=== PATIENT | female | born 1995 | race Caucasian/White ===

== ENCOUNTER 2018-11-18 10:19 | Emergency (ER) | payer BC, OTHER ==
[2018-11-18 10:40] VITALS: BP 121/62
--- NOTE | 2018-11-18 10:51 | UC ---
Throat Pain/Nasal Rodrigo HPI - HPI Summary HPI Summary: Pt presents with c/o worsening URI like symptoms X 10 days. Pt states that cough is worse when she lies down to sleep, that she is now coughing up bright red blood, vomited 3-4 times last night, fatigue worsening and chest congestion is somewhat relieved by using brothers nebulizer and albuterol medication. - History of Current Complaint Chief Complaint: UCGeneralIllness Stated Complaint: TIGHT CHEST,SINUS, COUGH Time Seen by Provider: 11/18/18 10:26 Hx Obtained From: Patient Hx Last Menstrual Period: HAS AN IUD, DOES NOT HAVE REG PERIODS ?: No Onset/Duration: Gradual Onset, Lasting Days - 10, Still Present, Worse Since - onset Severity: Moderate Pain Intensity: 5 Cough: None - bloody Related History: Seasonal Allergies - Epiglottits Risk Factors Epiglottis Risk Factors: Negative - Allergies/Home Medications Allergies/Adverse Reactions: Allergies Allergy/AdvReac Type Severity Reaction Status Date / Time enviromental Allergy Unknown Unknown Uncoded 11/18/18 10:26 Reaction Details Home Medications: Home Medications Albuterol 2.5MG/3ML (0.083%)* [Ventolin 2.5 MG/3 ML NEB.DAX*] 2.5 mg INH Q4H PRN 11/18/18 [History Confirmed 11/18/18] D-Methorphan/PE/Acetaminophen [Vicks Dayquil Liquid] 1 liq PO PRN 11/18/18 [ History] PMH/Surg Hx/FS Hx/Imm Hx Previously Healthy: Yes - Surgical History Surgical History: Yes Surgery Procedure, Year, and Place: Right second toe procedure. T&A 2008, [facility]. Right hand, Trauma repair, [facility] - Family History Known Family History: Positive: None Negative: Diabetes - Social History Occupation: Employed Full-time Lives: With Family Alcohol Use: Occasionally Substance Use Type: None Smoking Status (MU): Never Smoked Tobacco Have You Smoked in the Last Year: No - Immunization History Most Recent Influenza Vaccination: no Vaccination Up to Date: Yes Review of Systems All Other Systems Reviewed And Are Negative: Yes Constitutional: Positive: Fatigue Skin: Positive: Negative Eyes: Positive: Negative ENT: Positive: Sinus Congestion Respiratory: Positive: Shortness Of Breath - with exertion, Cough Cardiovascular: Positive: Negative Gastrointestinal: Positive: Vomiting Genitourinary: Positive: Negative Motor: Positive: Negative Neurovascular: Positive: Negative Musculoskeletal: Positive: Negative Neurological: Positive: Negative Psychological: Positive: Negative Is Patient Immunocompromised?: No Physical Exam Triage Information Reviewed: Yes Appearance: Ill-Appearing - tearful Vital Signs: Initial Vital Signs Temp 98.2 F 11/18/18 10:29 Pulse 105 11/18/18 10:29 Resp 16 11/18/18 10:29 BP 121/62 11/18/18 10:29 Pulse Ox 100 11/18/18 10:29 Vital Signs Reviewed: Yes Eye Exam: Normal ENT: Positive: Nasal congestion Dental Exam: Normal Neck exam: Normal Respiratory: Positive: Decreased breath sounds Cardiovascular Exam: Normal Musculoskeletal Exam: Normal Neurological Exam: Normal Psychological Exam: Normal Skin Exam: Normal Throat Pain/Nasal Course/Dx - Differential Dx/Diagnosis Differential Diagnosis/HQI/PQRI: URI Provider Diagnosis: Bronchitis, Hemoptysis, unspecified Discharge - Sign-Out/Discharge Documenting (check all that apply): Patient Departure All imaging exams completed and their final reports reviewed: No Studies - Discharge Plan Condition: Stable Disposition: HOME Prescriptions: Albuterol HFA INHALER* [Ventolin HFA Inhaler*] 1 - 2 puff INH Q4H PRN #1 mdi PRN Reason: Sob/Wheezing Azithromycin TAB* [Zithromax TAB (Z-BOOM) 250 mg #6 tabs] 2 tab PO .TODAY, THEN 1 DAILY #1 boom Benzonatate CAP* [Tessalon 100 MG CAP*] 200 mg PO Q8H PRN #30 cap PRN Reason: Cough Cetirizine* [ZyrTEC 10 MG TAB*] 10 mg PO DAILY #10 tab predniSONE TAB* [Deltasone 10 MG TAB*] 30 mg PO DAILY #12 tab Patient Education Materials: Acute Bronchitis (ED), Hemoptysis (ED) Referrals: Nany Matos MD [Primary Care Provider] - If Needed Additional Instructions: Please follow up with your PCP as needed. If symptoms worsen, please seek care at the closest emergency room. - Billing Disposition and Condition Condition: STABLE Disposition: Home
== END 2018-11-18 11:03 | disposition home or self-care (01) ==
LOC: UCCORT 10:19
DX: J40 Bronchitis, not specified as acute or chronic (principal); R04.2 Hemoptysis
CPT/HCPCS: 99212; G0463

== ENCOUNTER 2019-04-05 10:24 | Emergency (ER) | payer BC, OTHER ==
--- OUTSIDE RECORDS SUMMARY | 2019-04-05 10:40 | XMS REPORT | Continuity of Care Document ---
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 [phone] Problems Active Problems Provider Date Hypercoagulability state Nany Matos MD Onset: 11/02/2010 Polycystic ovaries Nany Matos MD Onset: 11/02/2010 Anxiety state Nany Matos MD Onset: 07/20/2015 Allergic rhinitis Nany Matos MD Onset: 07/20/2015 Moderate major depression, single episode Nany Matos MD Onset: 2018 Social History Type Date Description Comments Sex Unknown Tobacco Use Start: Unknown Patient has never smoked Smoking Status Reviewed: 03/08/19 Patient has never smoked Allergies, Adverse Reactions, Alerts Description No Known Drug Allergies Medications Active Medications SIG Qnty Indications Ordering Provider Date Buspirone HCL 1 po bid 60tabs F41.1 Nany Matos MD 03/08/2019 30mg Tablets Escitalopram Oxalate 1 by mouth 90tabs F41.9 Nany Matos MD 02/17/2015 20mg every day Tablets F41.1 Fluticasone Propionate 2 sprays each 16units 381.81 Nany Matos MD nostril daily 50mcg/Act Suspension J30.9 Ibuprofen 3 po q 4-6 hours Nany Matos MD 12/19/2011 200mg Tablets prn Fexofenadine HCL take 1 tablet twice 60Tabs J30.9 Nany Matos MD 05/23 30mg dailyas needed otc Tablets Mirena (52 MG) inserted 2014 Unknown 20mcg/24HR IUD History Medications Buspirone HCL 1 by mouth three 90tabs F41.1 Nany Matos, 02/01/2019 - 10mg times a day 03/08/2019 Tablets Buspirone HCL 1 by mouth three 90tabs F41.1 Nany Matos, 09/14/2018 - 5mg times a day for 02/01/2019 Tablets anxiety Immunizations CPT Code Status Date Vaccine Reaction Lot # [id number] Given 12/28/2018 Tdap (Adacel) Ages 7 And Above Only 50651 Given 12/24/2013 Menactra/Menveo Meningococcal Vaccine 24444 Given 05/26/2011 HPV Vaccine (Gardasil) 3 Dose VIS DATE 11/16/10 Schedule 83134 Given 05/12/2011 Afluria Or Fluvirin Flu Vac VIS DATE 02/08/11 Intramuscular 90315 Given 01/14/2011 HPV Vaccine (Gardasil) 3 Dose Schedule 98726 Given 05/10/2010 Influenza Intranasal Vaccine, Live Virus 94005 Given 05/10/2010 HPV Vaccine (Gardasil) 3 Dose Schedule 43755 Given 05/26/2008 Menactra/Menveo Meningococcal Vaccine 46913 Given 05/26/2008 Varicella (Chicken Pox) Immunization 75098 Given 2008 Tdap (Adacel) Ages 7 And Above Only 58838 Given 03/04/2002 DTaP Immunization 7 Yrs & Younger 73095 Given 03/04/2002 IPV / Poliomyelitis Immunization 37803 Given 03/04/2002 MMR Virus Immunization 06257 Given 06/28/2000 Pneumococcal (Prevnar 7)Child Under Five 62233 Given 09/24/1998 Hib/Hep B Vaccine Combination 01065 Given 09/24/1998 DTaP Immunization 7 Yrs & Younger 13859 Given 06/25/1998 Oral Poliovirus Immunization 80475 Given 06/25/1998 MMR Virus Immunization 83288 Given 03/12/1998 Varicella (Chicken Pox) Immunization 95665 Given 1997 DTaP Immunization 7 Yrs & Younger 00323 Given 1997 Hib HbOC Conjugate 4 Dose Schedule 45203 Given 1997 IPV / Poliomyelitis Immunization 84657 Given 1997 DTaP Immunization 7 Yrs & Younger 89071 Given 1997 Hib HbOC Conjugate 4 Dose Schedule 65601 Given 1997 Hib/Hep B Vaccine Combination 36375 Given 1997 IPV / Poliomyelitis Immunization 04196 Given 1997 DTaP Immunization 7 Yrs & Younger 97050 Given 1997 Hepatitis B Vac Ped/Adolescent 3 Dose Schedule Q2039 Refused 09/14/2018 Flu Vaccine NOS Vital Signs Date Vital Result Comment 03/08/2019 9:15am Weight 247.00 lb Heart Rate 88 /min BP Systolic 124 mmHg BP Diastolic 78 mmHg Respiratory Rate 18 /min Height 67.50 inches 5'7.50" BMI (Body Mass Index) 38.1 kg/m2 02/01/2019 4:18pm Weight 250.00 lb Heart Rate 78 /min BP Systolic 122 mmHg BP Diastolic 70 mmHg Respiratory Rate 18 /min Height 67.50 inches 5'7.50" O2 % BldC Oximetry 98 % Ra BMI (Body Mass Index) 38.6 kg/m2 Results Test Date Facility Test Result H/L Range Note CBC with Auto Diff-fcmg 09/14/2018 [facility] WBC 4.2 K/uL 4.1-11.0 1 RBC 4.83 M/uL 4.00-5.40 Hemoglobin 13.7 gm/dL 12.0-16.0 Hematocrit 40.5 % 36.0-47.0 MCV 83.9 fL 80.0-97.0 MCH 28.3 pg 27.0-32.0 MCHC 33.8 g/dL 32.0-36.0 RDW 14.6 % High 11.5-14.5 PLT Count 248 K/ul 140-400 MPV 8.0 FL 7.1-10.7 Neutrophil 45.3 % 35.0-75.0 Lymphocyte 43.8 % 16.0-52.0 Monocyte 8.6 % 2.0-10.0 Eosinophil 1.6 % 0.0-5.0 Basophil 0.7 % 0.0-4.0 Abs Neutrophils 1.9 K/uL Low 2.1-8.0 Abs Lymphocytes 1.8 K/uL 0.8-5.5 Abs Monocytes 0.4 K/uL 0.1-1.0 Abs Eosinophils 0.1 K/uL 0.0-0.5 Abs Basophils 0.0 K/uL 0.0-0.3 Laboratory test finding 09/14/2018 [facility] TSH 1.13 uIU/mL 0.35-4.94 Comprehensive Met Panel-FCMG 09/14/2018 [facility] Sodium 142 mmol/L 135- 146 2 Potassium 4.3 mmol/L 3.5-5.2 Chloride# 105 mmol/L 97-110 3 Carbon Dioxide 30 mmol/L 24-34 Glucose 93 mg/dL 70-105 BUN 14 mg/dL 6-26 Creatinine 0.7 mg/dL 0.5-1.4 Calcium 9.7 mg/dL 8.5-10.2 Total Protein 6.4 g/dL 6.0-8.0 Albumin 4.4 g/dL 3.6-4.9 Globulin 2.0 g/dL 2.0-3.5 A/G Ratio 2.2 Ratio 1.0-2.2 Total Bilirubin 0.3 mg/dL 0.1-1.3 Alkaline Phosphatase 62 U/L 24-140 Alt 16 U/L 3-42 Ast 17 U/L 8-42 Anion Gap 7 mmol/L 5-15 4 Rebecca Egfr >60 >60 5 Non Rebecca Egfr >60 >60 6 1 today 2 Updated reference range on new analyzer 3 Updated reference range on new analyzer 4 Updated Reference Range 5 Concerning GFR Guidelines for Americans: Normal function or mild renal disease, if clinically at risk: >/= 60 mL/min Moderately decreased: 30-59 Severely decreased: 15-29 Renal failure: <15 6 Concerning GFR Guidelines: Normal function or mild renal disease, if clinically at risk: >/= 60 mL/min Moderately decreased: 30-59 Severely decreased: 15-29 Renal failure: <15 Glomerular Filtration Rate (GFR) is estimated based on the MDRD equation, which assumes a steady state for creatinine as recommended by the National Kidney Disease Education Program in conjunction with the National Institutes of Health and the National Kidney Foundation. Clinical conditions in which it may be necessary to measure GFR by using clearance methods include extremes of age and body size, severe malnutrition or obesity, diseases of skeletal muscle, paraplegia or quadriplegia, vegetarian diet, rapidly changing kidney function, and calculation of the dose of potentially toxic drugs that are excreted by the kidneys. Procedures Date Code Description Status 03/08/2019 94887 Brief Emotional/Behav Assessment W/ Scoring Doc Per Completed Standard Inst 09/14/2018 84345 Brief Emotional/Behav Assessment W/ Scoring Doc Per Completed Standard Inst Medical Devices Description No Information Available Encounters Type Date Location Provider Dx Diagnosis Office Visit 02/01/2019 [facility] Nany Matos MD F41.1 Generalized anxiety 4:15p disorder E66.9 Obesity, unspecified Z13.31 Encounter for screening for depression Z68.38 Body mass index (BMI) 38.0-38.9, adult Office Visit 09/14/2018 9:30a [facility] Nany Matos MD F41.1 Generalized anxiety disorder Z13.31 Encounter for screening for depression 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 E28.2 Polycystic ovarian syndrome J30.9 Allergic rhinitis, unspecified Z68.39 Body mass index (BMI) 39.0-39.9, adult Assessments Date Code Description Provider 03/08/2019 F41.1 Generalized anxiety disorder Nany Matos MD 03/08/2019 F32.1 Major depressive disorder, single episode, Nany Matos MD moderate 03/08/2019 R30.0 Dysuria Nany Matos MD 03/08/2019 Z68.38 Body mass index (BMI) 38.0-38.9, adult Nany Matos MD 03/08/2019 R30.0 Dysuria Schedule, Laboratory 02/01/2019 F41.1 Generalized anxiety disorder Nany Matos MD 02/01/2019 E66.9 Obesity, unspecified Nany Matos MD 02/01/2019 Z13.31 Encounter for screening for depression Nany Matos MD 02/01/2019 Z68.38 Body mass index (BMI) 38.0-38.9, adult Nany Matos MD 09/14/2018 F41.1 Generalized anxiety disorder Nany Matos MD 09/14/2018 F41.1 Generalized anxiety disorder Nany Matos MD 09/14/2018 Z13.31 Encounter for screening for depression Nany Matos MD 09/14/2018 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 Nayn Matos MD 09/14/2018 E28.2 Polycystic ovarian syndrome Nany Matos MD 09/14/2018 J30.9 Allergic rhinitis, unspecified Nany Matos MD 09/14/2018 Z68.39 Body mass index (BMI) 39.0-39.9, adult Nany Matos MD 09/14/2018 F41.1 Generalized anxiety disorder Schedule, Laboratory 09/14/2018 F41.1 Generalized anxiety disorder [facility] Plan of Treatment Future Appointment(s):04/26/2019 1:30 pm - Nany Matos MD at [facility]03/08/2019 - Nany Matos MDF41.1 Generalized anxiety disorderNew Medication:Buspirone HCL 30 mg - 1 po bidComments:I counseled the patient about ways to manage her stress and anxiety. We will increase her buspironeto 30 mg to take it twice a day.Follow up:1-2 month follow up anxiety and depression.F32.1 Major depressive disorder, single episode, moderateComments:The patient has a PHQ9 score of 10. Lexapro may not be working well enough for her. We will consider switching her from Lexapro to venlafaxine during the next office visit. In the meantime, will increase dose of buspirone and recommend that she start counseling. she agrees with this planR30.0 DysuriaNew Labs:Urine Culture, Ordered: Comments:We will send her urine for culture.Z68.38 Body mass index (BMI) 38.0- 38.9, adultComments:The BMI is the ratio between height and weight. goal for a person under age 65 is between 18.5 and 25. You are overweight. Work on healthy lifestyle, with regular exercise (20 min daily will help) and eat a healthy diet. Formal diet plans work best. Functional Status Description No Information Available Mental Status Description No Information Available Referrals Description No Information Available
--- OUTSIDE RECORDS SUMMARY | 2019-04-05 10:40 | XMS REPORT | Continuity of Care Document ---
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 [phone] Problems Active Problems Provider Date Hypercoagulability state Nany Matos MD Onset: 11/02/2010 Polycystic ovaries Nany Matos MD Onset: 11/02/2010 Anxiety state Nany Matos MD Onset: 07/20/2015 Allergic rhinitis Nany Matos MD Onset: 07/20/2015 Moderate major depression, single episode Nnay Matos MD Onset: 2018 Social History Type Date Description Comments Sex Unknown Tobacco Use Start: Unknown Patient has never smoked Smoking Status Reviewed: 03/08/19 Patient has never smoked Allergies, Adverse Reactions, Alerts Description No Known Drug Allergies Medications Active Medications SIG Qnty Indications Ordering Provider Date Penicillin V Potassium 1 tab by mouth 20tabs J02.9 Nany Matos, 2018 two times a day MD 500mg Tablets for ten days Benzonatate 1 by mouth three 21caps R05 Nany Matos, 04/03/2019 100mg times a day as MD Capsules needed for cough Buspirone HCL 1 po bid 60tabs F41.1 Nany Matos, 03/08/2019 30mg MD Tablets Escitalopram Oxalate 1 by mouth every 90tabs F41.9 Nany Matos, 2014 20mg day MD Tablets F41.1 Fluticasone Propionate 2 sprays each 16units 381.81 Nany Matos MD nostril daily 50mcg/Act Suspension J30.9 Ibuprofen 3 po q 4-6 hours Nany Matos MD 12/19/2011 200mg Tablets prn Fexofenadine HCL take 1 tablet twice 60Tabs J30.9 Nany Matos MD 05/23 30mg dailyas needed otc Tablets Mirena (52 MG) inserted 2014 Unknown 20mcg/24HR IUD History Medications Buspirone HCL 1 by mouth 90tabs F41.1 Nany Matos MD 02/01/2019 - 10mg three times a 03/08/2019 Tablets day Immunizations CPT Code Status Date Vaccine Reaction Lot # [id number] Given 12/28/2018 Tdap (Adacel) Ages 7 And Above Only 83220 Given 12/24/2013 Menactra/Menveo Meningococcal Vaccine 01894 Given 05/26/2011 HPV Vaccine (Gardasil) 3 Dose VIS DATE 11/16/10 Schedule 93655 Given 05/12/2011 Afluria Or Fluvirin Flu Vac VIS DATE 02/08/11 Intramuscular 14314 Given 01/14/2011 HPV Vaccine (Gardasil) 3 Dose Schedule 64902 Given 05/10/2010 Influenza Intranasal Vaccine, Live Virus 83936 Given 05/10/2010 HPV Vaccine (Gardasil) 3 Dose Schedule 03327 Given 05/26/2008 Menactra/Menveo Meningococcal Vaccine 60074 Given 05/26/2008 Varicella (Chicken Pox) Immunization 54605 Given 2008 Tdap (Adacel) Ages 7 And Above Only 06242 Given 03/04/2002 DTaP Immunization 6 Yrs & Younger 57914 Given 03/04/2002 IPV / Poliomyelitis Immunization 50799 Given 03/04/2002 MMR Virus Immunization 62881 Given 06/28/2000 Pneumococcal (Prevnar 7)Child Under Five 48477 Given 09/24/1998 Hib/Hep B Vaccine Combination 57255 Given 09/24/1998 DTaP Immunization 6 Yrs & Younger 73803 Given 06/25/1998 Oral Poliovirus Immunization 04322 Given 06/25/1998 MMR Virus Immunization 00929 Given 03/12/1998 Varicella (Chicken Pox) Immunization 31354 Given 1997 DTaP Immunization 6 Yrs & Younger 70028 Given 1997 Hib HbOC Conjugate 4 Dose Schedule 96150 Given 1997 IPV / Poliomyelitis Immunization 15225 Given 1997 DTaP Immunization 6 Yrs & Younger 14342 Given 1997 Hib HbOC Conjugate 4 Dose Schedule 47476 Given 1997 Hib/Hep B Vaccine Combination 97171 Given 1997 IPV / Poliomyelitis Immunization 72699 Given 1997 DTaP Immunization 6 Yrs & Younger 31529 Given 1997 Hepatitis B Vac Ped/Adolescent 3 Dose Schedule Q2039 Refused 09/14/2018 Flu Vaccine NOS Vital Signs Date Vital Result Comment 04/03/2019 11:43am Body Temperature 98.2 F Weight 247.00 lb Heart Rate 86 /min BP Systolic 132 mmHg BP Diastolic 82 mmHg Respiratory Rate 18 /min Height 67.50 inches 5'7.50" O2 % BldC Oximetry 96 % BMI (Body Mass Index) 38.1 kg/m2 03/08/2019 9:15am Weight 247.00 lb Heart Rate 88 /min BP Systolic 124 mmHg BP Diastolic 78 mmHg Respiratory Rate 18 /min Height 67.50 inches 5'7.50" BMI (Body Mass Index) 38.1 kg/m2 Results Description No Information Available Procedures Date Code Description Status 04/03/2019 59029 Measure Blood Oxygen Level Single Determination Completed 03/08/2019 05903 Brief Emotional/Behav Assessment W/ Scoring Doc Per Completed Standard Inst Medical Devices Description No Information Available Encounters Type Date Location Provider Dx Diagnosis Office Visit 03/08/2019 [facility] Nany Matos MD F41.1 Generalized anxiety 9:15a disorder F32.1 Major depressive disorder, single episode, moderate R30.0 Dysuria Z68.38 Body mass index (BMI) 38.0-38.9, adult Office Visit 02/01/2019 4:15p [facility] Nany Matos MD F41.1 Generalized anxiety disorder E66.9 Obesity, unspecified Z13.31 Encounter for screening for depression Z68.38 Body mass index (BMI) 38.0-38.9, adult Assessments Date Code Description Provider 04/03/2019 J02.9 Acute pharyngitis, unspecified Michelle Treviño NP 04/03/2019 R05 Cough Michelle Treviño NP 04/03/2019 R35.0 Frequency of micturition Michelle Treviño NP 03/08/2019 F41.1 Generalized anxiety disorder Nany Matos [...] index (BMI) 38.0-38.9, adult Nany Matos MD Plan of Treatment Future Appointment(s):04/26/2019 1:30 pm - Nany Matos MD at [facility]04/03/2019 - Michelle Treviño, NPJ02.9 Acute pharyngitis, unspecifiedNew Medication: Penicillin V Potassium 500 mg - 1 tab by mouth two times a day for ten daysNew Labs:Throat Culture, Ordered: 04/03/19Comments:Exam is consistent with strept. Treat empirically. Throat culture today-OTC analgesics PRN-Tx of symptomology. Salt water gargles, cool mist humidifier, vicks vapor rub, warm/cold liquids, popsicles. Avoid irritating foods-Call with concerns, worsening symptoms or fever greater than 101.0Follow up:As [id number] CoughNew Medication:Benzonatate 100 mg - 1 by mouth three times a day as needed for coughComments:-Start benzonatate -Cool mist humidification-Deep breathing to prevent [id number] Frequency of micturitionNew Labs:Urine Culture, Ordered: 04/03/19Comments: Frequency and burning. Negative nitrites and possible contamination on dip. Send for culture Functional Status Description No Information Available Mental Status Description No Information Available Referrals Description No Information Available
[2019-04-05 10:57] VITALS: BP 122/69
--- NOTE | 2019-04-05 11:16 | UC ---
Hand/Wrist HPI - HPI Summary HPI Summary: Patient right-hand dominant. Patient presents with injury to her right middle finger. Patient that she was loading the cow into a truck when she caught her finger. Patient states she felt like it popped in and out. Patient states since this time progressively gotten more swollen and black and blue. Patient states she has pain with flexion but feels is related to the swelling. Mild patchy paresthesias to the tip. Patient took some Motrin this morning. Patient apply ice. Patient is right-hand dominant. Patient without any other injuries. Patient states is not . Medications reviewed this visit. - History Of Current Complaint Chief Complaint: UCUpperExtremity Stated Complaint: WC RIGHT HAND INJURY Time Seen by Provider: 04/05/19 11:00 Hx Obtained From: Patient Hx Last Menstrual Period: mirena ?: No Onset/Duration: Sudden Onset Severity Currently: Mild Pain Intensity: 3 - Allergies/Home Medications Allergies/Adverse Reactions: Allergies Allergy/AdvReac Type Severity Reaction Status Date / Time enviromental Allergy Unknown Unknown Uncoded 04/05/19 10:51 Reaction Details Home Medications: Home Medications Penicillin VK TAB* [Penicillin VK 250 mg Tab*] 500 mg PO BID 04/05/19 [History Confirmed 04/05/19] PMH/Surg Hx/FS Hx/Imm Hx Previously Healthy: Yes - Surgical History Surgical History: Yes Surgery Procedure, Year, and Place: Right second toe procedure. T&A 2008, [facility]. Right hand, Trauma repair, [facility] - Family History Known Family History: Positive: None, Non-Contributory Negative: Diabetes - Social History Occupation: Employed Full-time Lives: With Family Alcohol Use: Occasionally Substance Use Type: None Smoking Status (MU): Never Smoked Tobacco Have You Smoked in the Last Year: No - Immunization History Most Recent Influenza Vaccination: no Vaccination Up to Date: Yes Review of Systems All Other Systems Reviewed And Are Negative: Yes Constitutional: Positive: Negative Skin: Positive: Bruising, Other - Swelling right middle finger Motor: Positive: Other - Right middle finger pain Physical Exam - Summary Physical Exam Summary: Vital Signs Reviewed: Yes A+Ox3, no distress Eyes: Conjunctiva Clear ENT: Hearing grossly normal neck: supple Respiratory: Positive: No respiratory distress, No accessory muscle use Cardiovascular: skin color reflect adequate perfusion Musculoskeletal Exam: + TTP MCP 3rd middle on right Pain with flex/ext neg lateral laxity no pain carpals Neurological: Positive: Alert, ambulatory without difficulty + gross sensation throughout tip Psychological: Positive: Normal Response To examiner Skin: Positive: no rash, + ecchymosis and edema dorsum right hand - MCP Triage Information Reviewed: Yes Vital Signs: Initial Vital Signs Temp 97.8 F 04/05/19 10:51 Pulse 84 04/05/19 10:51 Resp 15 04/05/19 10:51 BP 122/69 04/05/19 10:51 Pulse Ox 100 04/05/19 10:51 Diagnostics - Radiology No standard instances Radiology Interpretation Completed By: Radiologist - Patient Name: BELLA DODD Medical Record#: [id number] Ordering Physician: Dyana Matos MD Acct.#: [id number] : 1995 Age: 24 Sex: F Location: [facility] Exam Date: 04/05/19 1119 ADM Status: REG ER Order Information: FINGER RIGHT MIDDLE Accession Number: [id number] CPT : 75702 INDICATION: Finger injury. TECHNIQUE: 3 views of the third finger were obtained. FINDINGS: The soft tissues are unremarkable. The bone mineralization is within normal limits. No fracture is identified. Anatomic alignment is maintained. The joint spaces are preserved. IMPRESSION: NO EVIDENCE FOR FRACTURE. <Electronically signed by Ish Vincent MD in [place]> 04/05/19 1145 Dictated By: Ish Vincent MD Dictated Date /Time: 04/05/19 1144 Transcribed Date/Time: 04/05/19 1144 Copy to: CC:Nany Matos MD; Dyana Matos MD Imaging - [facility] Imaging - [place] Urgent [facility] Urgent [facility] [address] [address] ph ([phone]) ph ([phone]) ph ([phone]) This report is only to be considered final once signed by the Provider(s) as displayed in the "<Electronically Signed by >" field (s). Absence of a signature indicates the report is in a draft status and still needs to be finalized. In the event this document was created by someone other than the signing Provider, the individual initiating the document will be listed in the "Entered by:" or "Dictated by:" parker. 1 of 1 Re-Evaluation - Re-Evaluation First Eval Comment: Reviewed imaging with patient. Will place a finger splint and asya tape. Motrin Tylenol. Elevate. Patient PVCs for Dr. Guzman recommend follow. Strict return precautions. Patient comfortable in agreement with plan. Hand/Wrist Course/Dx - Course Course Of Treatment: Patient presents to urgent care for evaluation of her right middle finger. Patient got caught between a truck at a trailer yesterday. Patient with progressive swelling. Patient states she was concerned she may dislocated yesterday. Patient's right-hand dominant. On exam vital signs are stable. Patient does have swelling and ecchymosis to the dorsum of the right hand. Patient distal CSM intact. Patient does have range of motion without obvious deformity. We'll check x-ray. Splint. Patient declined analgesia at this time. Patient comfortable in agreement with plan. - Differential Dx/Diagnosis Provider Diagnosis: Finger sprain, Contusion Discharge ED - Sign-Out/Discharge Documenting (check all that apply): Patient Departure All imaging exams completed and their final reports reviewed: Yes - Discharge Plan Condition: Stable Disposition: HOME Patient Education Materials: Contusion in Adults (ED), Finger Sprain (ED) Forms: *Work Release Referrals: Nany Matos MD [Primary Care Provider] - Oliver Angel MD [Medical Doctor] - Luisa Guzman MD [Medical Doctor] - Additional Instructions: - Okay to alternate ibuprofen (Advil, Motrin)600mg and Tylenol (acetaminophen) every 3 hours for pain or fever. Take with food. Do NOT take for more than 4-5 days. - Apply ice (wrapped in a towel) 20 minutes at a time, 2- 3times a day - elevate your hand to help with swelling and pain - wear splint for comfort as much as possible the next 5-7 days. If you continue to have pain - it is recommended you follow-up with the orthopedic provider - Billing Disposition and Condition Condition: STABLE Disposition: Home
== END 2019-04-05 12:05 | disposition home or self-care (01) ==
LOC: UCCORT 10:24
DX: S63.612A Unspecified sprain of right middle finger, initial encounter (principal); S60.031A Contusion of right middle finger without damage to nail, initial encounter; W23.0XXA Caught, crushed, jammed, or pinched between moving objects, initial encounter; Y93.89 Activity, other specified; Y92.9 Unspecified place or not applicable
CPT/HCPCS: 73140; 99211; G0463